=== PATIENT | female | born 1960 | race Caucasian/White ===

== ENCOUNTER 2018-01-16 13:07 | Outpatient (CLI) | payer BC ==
--- NOTE | 2018-01-16 15:12 | MMO ---
BILATERAL SCREENING MAMMOGRAM: Date: 01/16/18 HISTORY: 57-year-old female. Routine screening mammography. COMPARISON: 12/26/16, 10/20/15, 10/14/14. TECHNIQUE: CC and MLO views of both breasts are submitted for interpretation. This patient's mammogram was reviewed with the assistance of computer-aided detection. FINDINGS: The breasts are composed of scattered fibroglandular tissue. Bilaterally, no suspicious dominant mass , architectural distortion, or suspicious calcifications. Stable asymmetry in the outer left breast b est demonstrated on the CC projection. Bilateral benign-appearing calcifications are noted. Bilateral implants are stable. IMPRESSION: BIRADS 2: Benign Finding(s) RECOMMENDATION: Annual mammogram. POS: TEN
== END 2018-01-16 13:08 | disposition home or self-care (01) ==
LOC: SCSMAMMO 13:07
PROVIDERS: ATTEND Family Medicine
DX: Z12.31 Encounter for screening mammogram for malignant neoplasm of breast (principal)
CPT/HCPCS: 77067

== ENCOUNTER 2019-02-19 09:31 | Outpatient (CLI) | payer BC ==
--- NOTE | 2019-02-19 10:42 | MMO ---
Bilateral MAMMO Bilat Screen [facility]. CLINICAL HISTORY: Patient is 58 years old and is seen for screening. The patient has the following family history of breast cancer: mother, at age 59. The patient has a history of cervical cancer at age 27. The patient has a history of bilateral Implants in 2003. VIEWS: The views performed were: bilateral craniocaudal; bilateral mediolateral oblique; and bilateral Implant displaced with tomosynthesis. FILMS COMPARED: The present examination has been compared to prior imaging studies performed at [facility] on 10/14/2014, 10/20/2015, 12/26/2016 and 01/16/2018. MAMMOGRAM FINDINGS: The breasts are heterogeneously dense, which could obscure a lesion on mammography. There are stable calcifications seen in both breasts. There are no suspicious masses, suspicious calcifications, or new areas of architectural distortion. IMPRESSION: THERE IS NO MAMMOGRAPHIC EVIDENCE OF MALIGNANCY. A ROUTINE FOLLOW-UP MAMMOGRAM IN 1 YEAR IS RECOMMENDED. THE RESULTS OF THIS EXAM WERE SENT TO THE PATIENT. ACR BI-RADS Category 2 - Benign finding MAMMOGRAPHY NOTE: 1. A negative mammogram report should not delay a biopsy if a dominant of clinically suspicious mass is present. 2. Approximately 10% to 15% of breast cancers are not detected by mammography. 3. Adenosis and dense breasts may obscure an underlying neoplasm. Reported by: NADINE ARREGUIN MD Electonically Signed: [id number]
== END 2019-02-19 09:32 | disposition home or self-care (01) ==
LOC: BICMAMMO 09:31
PROVIDERS: ATTEND Family Medicine
DX: Z12.31 Encounter for screening mammogram for malignant neoplasm of breast (principal); Z80.3 Family history of malignant neoplasm of breast; Z98.82 Breast implant status; Z85.41 Personal history of malignant neoplasm of cervix uteri
CPT/HCPCS: 77063; 77067

== ENCOUNTER 2022-11-08 06:31 | Observation (INO) | payer BC ==
[2022-11-03 11:45] VITALS: BMI 34.9
[2022-11-08] MEDS ORDERED: Vancomycin (BATCH) 1.5 GRAM/300 ML BAG ONE (07:14)
[2022-11-08] MEDS ORDERED: Sodium Chloride 0.9% 100 ML ONE ×2 (07:14→09:09)
[2022-11-08] MEDS ORDERED: Tranexamic Acid 1,000 MG/10 ML VIAL ONE (07:14)
[2022-11-08] MEDS ORDERED: Midazolam HCl 2 mg/2 ml Vial ONE (07:39)
[2022-11-08] MEDS ORDERED: fentaNYL 50 mcg/mL 1 mL Vial ONE ×5 (07:39→11:58)
[2022-11-08] MEDS ORDERED: Bupivacaine PF 0.5% 30 ML VIAL ONE ×2 (07:39→10:02)
[2022-11-08] MEDS ORDERED: CEFAZOLIN 2 GM VIAL ONE (09:09)
[2022-11-08] MEDS ORDERED: Fat Emulsion 0 ML ONE (09:17)
[2022-11-08] MEDS ORDERED: HYDROcodone/Acetaminophen 10/325 mg Tablet PO PRN ×4 (09:18→09:45)
[2022-11-08] MEDS ORDERED: Promethazine HCl 25 MG/ML VIAL IM PRN ×2 (09:18→09:45)
[2022-11-08] MEDS ORDERED: diphenhydrAMINE 25 MG CAP PO PRN (09:18)
[2022-11-08] MEDS ORDERED: fentaNYL 50 mcg/mL 1 mL Vial SLOW IVP PRN ×2 (09:18→09:46)
[2022-11-08] MEDS ORDERED: Acetaminophen 325 MG TAB PO PRN (09:18)
[2022-11-08] MEDS ORDERED: Ondansetron PF 4 MG/2 ML Vial IVP PRN ×2 (09:18→09:45)
[2022-11-08] MEDS ORDERED: Zolpidem Tartrate 5 MG TAB PO PRN ×2 (09:18→09:45)
[2022-11-08] MEDS ORDERED: hydrOXYzine 10 MG TAB PO PRN (09:20)
[2022-11-08] MEDS ORDERED: Ketorolac Tromethamine 30 MG/ML VIAL ONE (09:25)
[2022-11-08] MEDS ORDERED: PROPOFOL 200 MG/20 ML VIAL ONE (09:25)
[2022-11-08] MEDS ORDERED: Dexamethasone 20 MG/5 ML VIAL ONE (09:25)
[2022-11-08] MEDS ORDERED: Bupivacaine HCl 0.5%/Epinephrine 1:200,000/PF 30 ml Vial ONE (09:25)
[2022-11-08] MEDS ORDERED: Lidocaine 1% PF 5 ML VIAL ONE (09:25)
[2022-11-08] MEDS ORDERED: Ondansetron PF 4 MG/2 ML Vial ONE (09:25)
[2022-11-08] MEDS ORDERED: traMADol HCl 50 MG TAB PO PRN ×2 (09:45)
[2022-11-08] MEDS ORDERED: Ropivacaine 0.2% 550 ML 550 ML NERVE BLCK SCH (09:45)
[2022-11-08] MEDS ORDERED: Ketorolac Tromethamine 30 MG/ML VIAL IVP SCH (14:00)
[2022-11-08] MEDS: Sodium Chloride 0.9% 1,000 ML IV SCH ×2 (14:34→23:52)
[2022-11-08] MEDS: Ketorolac Tromethamine 30 MG/ML VIAL IVP SCH ×3 (14:34→23:19)
[2022-11-08] MEDS: CEFAZOLIN 2 GM in Sodium Chloride 0.9% 100 ML IVPB SCH (17:28)
[2022-11-08] MEDS ORDERED: QUEtiapine 300 MG TAB PO SCH (21:00)
[2022-11-08] MEDS ORDERED: Famotidine 20 MG TAB PO SCH (21:00)
[2022-11-08] MEDS ORDERED: Rosuvastatin 5 MG TAB PO SCH (21:00)
[2022-11-08] MEDS: Aspirin 81 mg Enteric Coated Tablet PO SCH (21:13)
[2022-11-08] MEDS: busPIRone HCl 10 MG TAB PO SCH (21:14)
[2022-11-09] MEDS: CEFAZOLIN 2 GM in Sodium Chloride 0.9% 100 ML IVPB SCH (01:24)
[2022-11-09 04:19] VITALS: BP 95/60
[2022-11-09] MEDS: Sodium Chloride 0.9% 1,000 ML IV SCH (05:30)
[2022-11-09] MEDS: Ketorolac Tromethamine 30 MG/ML VIAL IVP SCH (05:32)
[2022-11-09 05:54] LABS: Hemoglobin 11.3 g/dL (12.0-16.0); Mean Corpuscular HGB CONC 33.2 g/dL (32.0-36.0); Mean Corpuscular Volume 93.2 fl (78.0-98.0); Mean Platelet Volume 9.4 fL (7.4-10.4); Platelet Count 194 10x3/uL (130-400); RBC Distribution Width 13.6 % (11.5-14.5); Red Blood Cell (RBC) Count 3.65 mill/uL (4.20-5.40); White Blood Cell (WBC) Count 13.4 10x3/uL (4.8-10.8)
[2022-11-09] MEDS ORDERED: Ferrous Gluconate 324 MG TAB PO SCH (08:00)
[2022-11-09 08:40] VITALS: TEMP 98.2
[2022-11-09] MEDS ORDERED: Multivitamin W/ Minerals 1 TAB PO SCH (09:00)
[2022-11-09] MEDS ORDERED: Senokot S 8.6-50 MG TAB PO SCH (09:00)
[2022-11-09] MEDS: busPIRone HCl 10 MG TAB PO SCH (09:14)
[2022-11-09] MEDS: Aspirin 81 mg Enteric Coated Tablet PO SCH (09:14)
== END 2022-11-09 11:10 | disposition home or self-care (01) ==
LOC: SDC 06:31 → SJJU 12:35
PROVIDERS: ADMIT Orthopaedic Surgery; ATTEND Orthopaedic Surgery
PROC: 0SRD0JZ Replacement of Left Knee Joint with Synthetic Substitute, Open Approach (ICD-10-PCS; principal; 2022-11-08)
DX: M17.12 Unilateral primary osteoarthritis, left knee (principal); F31.9 Bipolar disorder, unspecified; H91.90 Unspecified hearing loss, unspecified ear; Z87.891 Personal history of nicotine dependence; Z79.899 Other long term (current) drug therapy; Z91.040 Latex allergy status
CPT/HCPCS: 36415; 85027; A4306; C1713; C1776; J1100; J1885; J2250; J2405; J2704; J2795; J3010; J3370; J3490; S0020

== ENCOUNTER 2023-03-16 11:54 | Outpatient (CLI) | payer BC | END 2023-03-16 11:55 | disposition home or self-care (01) | LOC: BICMAMMO 11:54 | PROVIDERS: ATTEND Family Medicine | DX: Z12.31 Encounter for screening mammogram for malignant neoplasm of breast (principal); Z80.3 Family history of malignant neoplasm of breast; Z98.82 Breast implant status; Z85.41 Personal history of malignant neoplasm of cervix uteri | CPT/HCPCS: 77063; 77067 ==

== ENCOUNTER 2023-05-30 14:15 | Outpatient (CLI) | payer BC | END 2023-05-30 14:16 | disposition home or self-care (01) | LOC: BICMRI 14:15 | PROVIDERS: ATTEND Orthopaedic Surgery Sports Medicine | DX: M23.92 Unspecified internal derangement of left knee (principal); M22.8X2 Other disorders of patella, left knee ==

== ENCOUNTER 2024-04-12 10:24 | Inpatient (IN) | payer MEDICARE ==
[2024-04-12] MEDS ORDERED: Iopamidol-370 76% 500 ML MDV (1 ML CHARGE) ONE (11:34)
[2024-04-12] MEDS ORDERED: Morphine 4 MG/ML VIAL ONE (11:36)
[2024-04-12] MEDS ORDERED: Ondansetron PF 4 MG/2 ML Vial ONE ×2 (11:36→17:54)
[2024-04-12 11:39] LABS: #Basophils 0.03 10x3/uL (0.0-0.2); #Eosinophils Less than 0.03 10x3/uL (0.0-0.7); %Basophils 0.2 % (0.0-1.0); %Eosinophils 0.1 % (0.0-10.0); %Lymphocytes 5.6 % (21.0-51.0); %Monocytes 7.4 % (0.0-10.0); %Neutrophils 86.3 % (42.0-75.0); Hematocrit 38.4 % (36.0-47.0); Hemoglobin 12.9 g/dL (12.0-16.0); Mean Corpuscular HGB CONC 33.6 g/dL (32.0-36.0); Mean Corpuscular Hemoglobin 31.1 pg (27.0-31.0); Mean Corpuscular Volume 92.5 fL (78.0-98.0); Mean Platelet Volume 9.2 fL (7.4-10.4); Platelet Count 257 10x3/uL (130-400); RBC Distribution Width 13.9 % (11.5-14.5); Red Blood Cell (RBC) Count 4.15 mill/uL (4.20-5.40)
[2024-04-12 11:53] LABS: ALT (SGPT) 13 U/L (8-55); AST (SGOT) 9 U/L (5-34); Albumin 3.6 g/dL (3.4-4.8); Alkaline Phosphatase 65 U/L (40-110); Anion Gap 13 mmol/L (10-20); BUN (Urea Nitrogen) 8 mg/dL (9.8-20.1); Bilirubin, Total 0.9 mg/dL (0.2-1.2); Calc. Creatinine Clearance 0 mL/min (70-130); Calcium 9.2 mg/dL (7.8-10.44); Carbon Dioxide 26 mmol/L (23-31); Chloride 104 mmol/L (98-107); Estimated GFR 91; Globulin 3.3 g/dL (2.4-3.5); Glucose 134 mg/dL (80-115); Lipase 8 U/L (8-78); Potassium 3.7 mmol/L (3.5-5.1); Protein, Total 6.9 g/dL (5.8-8.1); Sodium 139 mmol/L (136-145)
[2024-04-12] MEDS ORDERED: Sodium Chloride 0.9% 100 ML ONE ×2 (11:57→16:59)
[2024-04-12] MEDS ORDERED: Piperacillin/Tazobactam 3.375 GM VIAL ONE ×2 (11:57→16:59)
[2024-04-12 13:21] LABS: Bacteria/HPF None Seen HPF (None Seen); Bilirubin Negative (Negative); Blood, Urine Negative (Negative); CAUTI Indications for Culture Dysuria,urgency,freq; Clarity Clear (Clear); Glucose, Urine (Dipstick) Normal (Negative); Ketone, Urine Negative (Negative); Leukocyte Negative Leu/uL (Negative); Nitrite Negative (Negative); Protein, Urine (Dipstick) Negative (Neg-Trace); RBC/HPF 0-3 HPF (0-3); Specific Gravity, Urine 1.047 (1.002-1.036); Urobilinogen Normal mg/dL (Less than 2); WBC/HPF 0-3 HPF (0-3)
[2024-04-12 13:25] LABS: Urine Culture Reflex No No
[2024-04-12] MEDS ORDERED: Ipratropium/Albuterol 3 ML NEB NEB PRN ×2 (14:35→18:24)
[2024-04-12] MEDS ORDERED: Ondansetron PF 4 MG/2 ML Vial IVP PRN ×2 (14:35→18:24)
[2024-04-12] MEDS ORDERED: traMADol HCl 50 MG TAB PO PRN (14:36)
[2024-04-12] MEDS ORDERED: fentaNYL 50 mcg/mL 1 mL Vial ONE (16:38)
[2024-04-12] MEDS ORDERED: EPINEPHrine 1 MG/ML VIAL ONE (16:50)
[2024-04-12] MEDS ORDERED: Bupivacaine 0.25% HCL 30 ML VIAL ONE (16:50)
[2024-04-12] MEDS ORDERED: Rocuronium Bromide 10 MG/ML (10ML VIAL) ONE (16:56)
[2024-04-12] MEDS ORDERED: PROPOFOL 20 ML ONE (16:56)
[2024-04-12] MEDS ORDERED: fentaNYL PF 100 MCG/2 ML SYRINGE ONE (16:56)
[2024-04-12] MEDS ORDERED: Lidocaine 1% PF 5 ML VIAL ONE (16:56)
[2024-04-12] MEDS ORDERED: Dexamethasone 20 MG/5 ML VIAL ONE (17:54)
[2024-04-12] MEDS ORDERED: Ketorolac Tromethamine 30 MG (1 mL) VIAL ONE (17:54)
[2024-04-12] MEDS ORDERED: SUGAMMADEX SODIUM 200 MG/2 ML VIAL ONE (17:56)
[2024-04-12] MEDS ORDERED: Piperacillin/Tazobactam 3.375 GM in Sodium Chloride 0.9% 100 ML IVPB SCH (18:00)
[2024-04-12] MEDS ORDERED: Dextrose 50% Abboject 50 ML SYRINGE SLOW IVP PRN (18:24)
[2024-04-12] MEDS ORDERED: Calcium Carbonate 500 MG ChewTAB PO PRN (18:24)
[2024-04-12] MEDS ORDERED: Glucagon 1 MG/ML KIT IM PRN (18:24)
[2024-04-12] MEDS ORDERED: Dextrose 5% in Water 1,000 ML IV PRN (18:24)
[2024-04-12] MEDS: traMADol HCl 50 MG TAB PO SCH (20:03)
[2024-04-12] MEDS: Acetaminophen 325 MG TAB PO SCH (20:03)
[2024-04-12] MEDS: D5 1/2 NS w/20 mEq KCL 1,000 ML IV SCH (20:04)
[2024-04-12] MEDS: Famotidine 20 MG TAB PO SCH ×2 (20:04→21:52)
[2024-04-12] MEDS: Sodium Chloride 0.9% 1,000 ML IV SCH (20:04)
[2024-04-12] MEDS: QUEtiapine 300 MG TAB PO SCH (21:51)
[2024-04-12] MEDS: busPIRone HCl 10 MG TAB PO SCH (21:52)
[2024-04-12] MEDS: Rosuvastatin 5 MG TAB PO SCH (21:52)
[2024-04-12] MEDS: hydrOXYzine 10 MG TAB PO PRN (21:52)
[2024-04-12] MEDS: Piperacillin/Tazobactam 3.375 GM in Sodium Chloride 0.9% 100 ML IVPB SCH (22:37)
[2024-04-13] MEDS: Ketorolac Tromethamine 30 MG (1 mL) VIAL IVP SCH (01:04)
[2024-04-13] MEDS: Piperacillin/Tazobactam 3.375 GM in Sodium Chloride 0.9% 100 ML IVPB SCH (01:05)
[2024-04-13 05:36] VITALS: BMI 33.9
[2024-04-13 06:12] LABS: Hematocrit 36.2 % (36.0-47.0); Hemoglobin 12.2 g/dL (12.0-16.0); Mean Corpuscular HGB CONC 33.7 g/dL (32.0-36.0); Mean Corpuscular Volume 92.1 fL (78.0-98.0); Mean Platelet Volume 9.4 fL (7.4-10.4); Platelet Count 197 10x3/uL (130-400); RBC Distribution Width 14.2 % (11.5-14.5); Red Blood Cell (RBC) Count 3.93 mill/uL (4.20-5.40)
[2024-04-13 06:17] LABS: Anion Gap 13 mmol/L (10-20); BUN (Urea Nitrogen) 14 mg/dL (9.8-20.1); Calc. Creatinine Clearance 73 mL/min (70-130); Carbon Dioxide 21 mmol/L (23-31); Chloride 107 mmol/L (98-107); Estimated GFR 53; Glucose 164 mg/dL (80-115); Sodium 137 mmol/L (136-145)
[2024-04-13 06:42] LABS: Anisocytosis SLIGHT = 6-15 cells HPF (0-5); Band 37 % (5-11); Burr Cells SLIGHT = 2-5 cells HPF (0-1); Lymphocytes 4 % (21-51); Metamyelocyte 2 % (0-0); Monocytes 4 % (0-10); Neutrophil 53 % (42-75); Platelet Adequacy Comment Platelets Normal; Toxic Granulation SLIGHT; Vacuoles SLIGHT
[2024-04-13] MEDS: Sodium Chloride 0.9% 1,000 ML IV SCH ×3 (07:54→18:10)
[2024-04-13] MEDS: Enoxaparin 30 MG (0.3 mL) SYRINGE SC SCH (08:05)
[2024-04-13 12:24] LABS: Anion Gap 15 mmol/L (10-20); BUN (Urea Nitrogen) 18 mg/dL (9.8-20.1); Calc. Creatinine Clearance 56 mL/min (70-130); Calcium 7.9 mg/dL (7.8-10.44); Carbon Dioxide 19 mmol/L (23-31); Chloride 106 mmol/L (98-107); Estimated GFR 38; Glucose 161 mg/dL (80-115); Potassium 4.1 mmol/L (3.5-5.1); Sodium 136 mmol/L (136-145)
[2024-04-13] MEDS: HYDROcodone/Acetaminophen 10/325 mg Tablet PO PRN (13:56)
[2024-04-13 14:22] LABS: #Basophils Less than 0.03 10x3/uL (0.0-0.2); #Eosinophils Less than 0.03 10x3/uL (0.0-0.7); %Basophils 0.1 % (0.0-1.0); %Lymphocytes 5.2 % (21.0-51.0); %Monocytes 7.1 % (0.0-10.0); %Neutrophils 87.4 % (42.0-75.0); Hematocrit 37.2 % (36.0-47.0); Hemoglobin 12.2 g/dL (12.0-16.0); Mean Corpuscular HGB CONC 32.8 g/dL (32.0-36.0); Mean Corpuscular Hemoglobin 31.4 pg (27.0-31.0); Mean Corpuscular Volume 95.9 fL (78.0-98.0); Mean Platelet Volume 9.1 fL (7.4-10.4); Platelet Count 190 10x3/uL (130-400); RBC Distribution Width 14.3 % (11.5-14.5); Red Blood Cell (RBC) Count 3.88 mill/uL (4.20-5.40)
[2024-04-13] MEDS ORDERED: Albumin 5% 12.5 GM (250 mL) BOT IVPB SCH (14:45)
[2024-04-14] MEDS: Enoxaparin 40 MG (0.4 mL) SYRINGE SC SCH (08:54)
[2024-04-14 10:22] LABS: #Basophils Less than 0.03 10x3/uL (0.0-0.2); %Basophils 0.2 % (0.0-1.0); %Eosinophils 0.6 % (0.0-10.0); %Lymphocytes 5.6 % (21.0-51.0); %Monocytes 5.7 % (0.0-10.0); %Neutrophils 87.3 % (42.0-75.0); Hematocrit 30.9 % (36.0-47.0); Hemoglobin 10.3 g/dL (12.0-16.0); Mean Corpuscular HGB CONC 33.3 g/dL (32.0-36.0); Mean Corpuscular Hemoglobin 32.1 pg (27.0-31.0); Mean Corpuscular Volume 96.3 fL (78.0-98.0); Mean Platelet Volume 10.5 fL (7.4-10.4); Platelet Count 250 10x3/uL (130-400); RBC Distribution Width 14.5 % (11.5-14.5); Red Blood Cell (RBC) Count 3.21 mill/uL (4.20-5.40)
[2024-04-14 10:38] LABS: Anion Gap 13 mmol/L (10-20); BUN (Urea Nitrogen) 23 mg/dL (9.8-20.1); Calc. Creatinine Clearance 73 mL/min (70-130); Carbon Dioxide 18 mmol/L (23-31); Chloride 106 mmol/L (98-107); Estimated GFR 52; Glucose 134 mg/dL (80-115); Potassium 3.6 mmol/L (3.5-5.1); Sodium 133 mmol/L (136-145)
[2024-04-14] MEDS ORDERED: Methocarbamol 500 MG TAB PO SCH (13:20)
[2024-04-14] MEDS ORDERED: Acetaminophen/Codeine 30-300mg Tablet PO PRN (15:31)
[2024-04-14] MEDS: Methocarbamol 500 MG TAB PO SCH ×2 (16:33→21:07)
[2024-04-15 10:00] VITALS: BP 110/72; TEMP 98
== END 2024-04-15 10:50 | disposition home or self-care (01) | DRG 398 ==
LOC: ERS 10:24 → SURG B 13:36
PROVIDERS: ADMIT Surgery; ATTEND Surgery
PROC: 0DTJ4ZZ Resection of Appendix, Percutaneous Endoscopic Approach (ICD-10-PCS; principal; 2024-04-12)
PROC: 3E033XZ Introduction of Vasopressor into Peripheral Vein, Percutaneous Approach (ICD-10-PCS; 2024-04-12)
PROC: 30233J1 Transfusion of Nonautologous Serum Albumin into Peripheral Vein, Percutaneous Approach (ICD-10-PCS; 2024-04-13)
PROC: 5A09357 Assistance with Respiratory Ventilation, Less than 24 Consecutive Hours, Continuous Positive Airway Pressure (ICD-10-PCS; 2024-04-14)
DX: K35.80 Unspecified acute appendicitis (principal); N17.9 Acute kidney failure, unspecified; I10 Essential (primary) hypertension; E78.5 Hyperlipidemia, unspecified; F31.9 Bipolar disorder, unspecified; Z91.040 Latex allergy status; Z90.710 Acquired absence of both cervix and uterus; Z79.899 Other long term (current) drug therapy
CPT/HCPCS: 36415; 74177; 80048; 80053; 81001; 83690; 85025; 88304; 93005; 96361; 96365; 96375; J0171; J0665; J1100; J1650; J1885; J2272; J2405; J2543; J2704; J3010; J3480; J7030; Q9967

== ENCOUNTER 2024-05-22 14:07 | Outpatient (CLI) | payer MEDICARE | END 2024-05-22 14:08 | disposition home or self-care (01) | LOC: BICMAMMO 14:07 | PROVIDERS: ATTEND Family Medicine | DX: M17.12 Unilateral primary osteoarthritis, left knee (principal) | CPT/HCPCS: 77080 ==

== ENCOUNTER 2024-07-17 11:09 | Outpatient (CLI) | payer MEDICARE | END 2024-07-17 11:10 | disposition home or self-care (01) | LOC: MRI 11:09 | PROVIDERS: ATTEND Student in an Organized Health Care Education/Training Program | DX: M47.27 Other spondylosis with radiculopathy, lumbosacral region (principal); M47.816 Spondylosis without myelopathy or radiculopathy, lumbar region; M48.061 Spinal stenosis, lumbar region without neurogenic claudication; M48.07 Spinal stenosis, lumbosacral region; M47.814 Spondylosis without myelopathy or radiculopathy, thoracic region; M47.815 Spondylosis without myelopathy or radiculopathy, thoracolumbar region | CPT/HCPCS: 72148 ==

== ENCOUNTER 2025-03-20 13:13 | Outpatient (CLI) | payer MEDICARE | END 2025-03-20 13:14 | disposition home or self-care (01) | LOC: BICMAMMO 13:13 | PROVIDERS: ATTEND Family Medicine | DX: Z12.31 Encounter for screening mammogram for malignant neoplasm of breast (principal); Z80.3 Family history of malignant neoplasm of breast; Z85.41 Personal history of malignant neoplasm of cervix uteri; Z98.82 Breast implant status | CPT/HCPCS: 77063; 77067 ==